=== PATIENT | female | born 1950 | race Caucasian/White ===

== ENCOUNTER → 2017-07-24 | Outpatient (CLI) | payer OTHER, BC ==
[~2017-07-24] MED LIST: ACCUNEB SO1.25 MG/1 INH; ACIDOPHILUS1 EAC3 PO; ALIGN4 MG PO; APAP500 PO; ASPIRIN81 M2 PO; BENADRYL25 MG PO; CALICUM 500+D1 EACH; CHLOR-TRIMETON12 MG PO; CIPROFLOXACIN500 M3 PO; CULTURELLE PO; CULTURELLE1 EACH PO; DIFLUCAN150 M1 PO; EXCEDRIN CAPLE1 EACH PO; FLAGYL500 MG PO; HYDROCODON-ACE1 EAC5 PO; HYDROCODONE-AP1 EAC6; HYDROCODONE-AP1 EAC6 PO; IBUPROFEN 600600 M1 PO; LEVOTHYROXIN0.075 MG PO; LEXAPRO20 MG PO; LOPERAMIDE 2 MG2 M1 PO; LUTEIN6 MG; MAALOX ADVANCE355 M1 PO; MAGNES; METAMUCIL PAC1 UDPKT PO; MIRALAX255 GM PO; MUCINEX TA600 MG/TA2 PO; MUCINEX600 MG; MULTIVITAMINS; NYAMYC15 GM TOP; OCUVITE TABLET1 EAC1 PO; ONDANSETRON HCL4 M2 PO; PEPCID20 MG PO; PROBIOTIC1 EACH PO; PROMETHAZINE12.5 M1 PO; PROTONIX 20 MG20 M1 PO; PROTONIX40 M1 PO; SUDAFED SINUS1 EACH PO; TERAZOL 380 MG VAG; TRAMADOL 50 MG50 MG PO; TRIAMCINOLONE A80 G2 TP; TUMS PO; VITAMIN D1000 UNI1 PO; ZOFRAN ODT4 MG SUBLING; ZOLOFT100 MG; ZOSYN 3.3753.375 GM IV; ZPAK
== END ==
LOC: RAD 13:07
DX: Z12.31 Encounter for screening mammogram for malignant neoplasm of breast (principal)

== ENCOUNTER → 2017-07-26 | Outpatient (CLI) | payer OTHER, BC | LOC: ULTRA 09:11 | DX: N63.10 Unspecified lump in the right breast, unspecified quadrant (principal) ==

== ENCOUNTER → 2018-09-17 | Outpatient (CLI) | payer OTHER | LOC: RAD 10:24 | DX: Z12.31 Encounter for screening mammogram for malignant neoplasm of breast (principal) ==

== ENCOUNTER → 2020-10-12 | Outpatient (CLI) | payer OTHER, MEDICARE | LOC: RAD 10:37 → BC 16:07 | PROVIDERS: ATTEND Internal Medicine | DX: Z12.31 Encounter for screening mammogram for malignant neoplasm of breast (principal) ==